=== PATIENT | female | born 1955 | race Two or more races ===

== ENCOUNTER 2019-05-11 07:25 | Outpatient (CLI) | payer OTHER | END 2019-05-11 07:26 | disposition home or self-care (01) | LOC: SONOGRAMA 07:25 | DX: E04.1 Nontoxic single thyroid nodule (principal) ==

== ENCOUNTER 2025-03-07 07:07 | Outpatient (CLI) | payer OTHER | END 2025-03-07 07:08 | disposition home or self-care (01) | LOC: NUCLEAR 07:07 | PROVIDERS: ATTEND Orthopaedic Surgery | DX: M25.551 Pain in right hip (principal); Z96.652 Presence of left artificial knee joint | CPT/HCPCS: 78315; A9503 ==